=== PATIENT | female | born 1940 | race Caucasian/White ===

== ENCOUNTER 2021-08-13 16:48 | Emergency (ER) | payer MEDICARE, SELFPAY ==
--- NOTE | ~2021-08-13 | XR_ITS ---
EXAMINATION: XR tibia fibula LT 2V INDICATION: Left leg pain TECHNIQUE: Two views of the left tibia and fibula are obtained. COMPARISON: None available FINDINGS: Bone alignment is normal. There is no fracture. There is mild osteoarthritis at the knee. S oft tissue calcifications are noted in the leg. There is mild anterior soft tissue swelling overlying the distal tibia. IMPRESSION: 1. Soft tissue swelling without acute osseous abnormality. Reviewed, dictated and finalized at location F.
[2021-08-13 17:08] VITALS: BP 154/85; PULSE 86; RESP 16; TEMP 36.5; O2SAT 97
[2021-08-13 17:50] LABS: Basophils Absolute Auto 0.1 K/mm3 (0.0-0.1); Basophils Percent Auto 0.7 % (0.2-1.2); Eosinophils Absolute Auto 0.1 K/mm3 (0-0.3); Eosinophils Percent Auto 1.4 % (0-4.4); Hematocrit 42.2 % (37.0-47.0); Hemoglobin 13.7 g/dL (12.0-15.0); Immature Granulocyte Absolute 0.04 K/mm3 (0.00-0.031); Immature Granulocyte Percent A 0.4 % (0-0.5); Lymphocytes Absolute Auto 3.64 K/mm3 (0.9-3.2); Lymphocytes Percent Auto 40.4 % (18.3-44.2); Mean Corpuscular HGB Conc 32.5 g/dl (32-36); Mean Corpuscular Hemoglobin 27.3 pg (26-34); Mean Corpuscular Volume 84.2 fl (80-100); Mean Platelet Volume 11.7 fl (7.4-10.4); Monocytes Absolute Auto 0.8 K/mm3 (0.1-0.6); Monocytes Percent Auto 9.2 % (2.6-8.5); Neutrophils Absolute Auto 4.3 K/mm3 (1.3-6.7); Neutrophils Percent Auto 47.9 % (45.5-73.1); Platelet Count Result 171 k/mm3 (150-375); Red Blood Count 5.01 M/mm3 (4.2-5.4); Red Cell Distribution Width 13.7 % (11.5-14.5)
[2021-08-13 18:03] LABS: Alanine Aminotransferase 20 U/L (6-35); Albumin Level 4.6 g/dL (3.5-5.1); Alkaline Phosphatase 79 U/L (38-126); Anion Gap 8 mmol/L (8-16); Aspartate Amino Transferase 29 U/L (14-36); Bilirubin,Total 0.8 mg/dL (0.2-1.3); Blood Urea Nitrogen 23 mg/dL (7-17); Calcium 9.4 mg/dL (8.4-10.2); Carbon Dioxide 27 mmol/L (22-30); Chloride 103 mmol/L (98-107); Estimated CRCL calculation 47 ml/min; Estimated Glomerular Filt Rate 53; Glucose 89 mg/dL (65-110); Potassium 4.1 mmol/L (3.4-5.0); Sodium 138 mmol/L (137-145)
--- NOTE | 2021-08-13 18:05 | ED.WOUNDLAC ---
HPI - Wound/Laceration General Chief Complaint: Wound/Laceration Stated Complaint: leg infection Time Seen by Provider: 08/13/21 17:19 Source: patient History of Present Illness HPI narrative: Patient presents with swelling and pain to the left lower leg. Patient where she had a fall in March and recovered well from a few days ago she was cutting a friend's hair when she tripped and injured her leg again she noted increasing pain swelling and warmth to the left leg was seen in urgent care started on 300 of clindamycin. She has been taking the medicine for approximately 48 hours and her symptoms have persisted so she came to the ER for further evaluation. Pain is achy, constant, worse with walking around, no radiation. She denies any fevers chills nausea vomiting or diarrhea. She denies any urinary symptoms Related Data Allergies Allergy/AdvReac Type Severity Reaction Status Date / Time Penicillins AdvReac Rash Verified 08/13/21 17:51 tetracycline AdvReac Nausea and Verified 08/13/21 17:51 Vomiting Review of Systems Review of Systems: CONSTITUTIONAL: Denies fever, chills, or sweats. EYES: Denies visual changes, redness, or discharge. ENT: Denies rhinorrhea, congestion, sore throat, or otalgia. CARDIOVASCULAR: Denies chest pain, palpitations, or edema. RESPIRATORY: Denies cough or dyspnea. GASTROINTESTINAL: Denies abdominal pain, nausea, vomiting, or diarrhea. GENITOURINARY: Denies dysuria or hematuria. SKIN: Denies rash or itching. MUSCULOSKELETAL: Denies back pain, or myalgia. NEUROLOGIC: Denies headache, numbness, dizziness, or weakness. PSYCHIATRIC: Denies anxiety or depression. All systems reviewed & are unremarkable except as noted in HPI and below Exam Narrative: GENERAL: Well-appearing, well-nourished, and in no acute distress. HEAD: Normocephalic, atraumatic. EYES: PERRLA and EOMI. ENT: Nares clear, no rhinorrhea or epistaxis. Mucous membranes moist. NECK: Supple. No masses. No JVD EXTREMITIES: Normal range of motion. Diffuse distal left lower leg erythema and warmth with diffuse tenderness there is no focal fluctuance there is no open or draining purulent wounds SKIN: Warm, dry, no rash. NEURO: No focal deficits. Alert and oriented x3. PSYCH: Normal mood and affect. Course Reevaluation(s) Reevaluation #1: Results and plan reviewed with patient. Patient comfortable outpatient plan. Date: 08/13/21 Time: 18:41 Vital Signs Vital signs: Vital Signs Temperature 36.5 C 08/13/21 17:08 Pulse Rate 86 08/13/21 17:08 Respiratory Rate 16 08/13/21 17:08 Blood Pressure 154/85 H 08/13/21 17:08 Pulse Oximetry 97 08/13/21 17:08 Oxygen Delivery Room Air 08/13/21 17:08 Temperature 36.5 C 08/13/21 17:08 Pulse Rate 86 08/13/21 17:08 Respiratory Rate 16 08/13/21 17:08 Blood Pressure 154/85 H 08/13/21 17:08 Pulse Oximetry 97 08/13/21 17:08 Oxygen Delivery Room Air 08/13/21 17:08 MDM - Wound/Laceration MDM Narrative Medical decision making narrative: H&P as above, vss, pt looks clinically well, exam with warmth edema and tenderness in the left lower leg, labs clinically unremarkable, img without bony process or free air, additional labs/img considered, symptomatic relief available as needed, on reevaluation pt continues to looks clinically well. Suspect cellulitis, dns abscess, severe sepsis consider dehydration, fracture, septic arthritis plan to tx/monitor as op w/ pcm f/u findings/plan discussed with pt, pt agree/comfortable with plan, return precautions given Lab Data Result diagrams: 08/13/21 17:42 08/13/21 17:42 Labs: Lab Results 08/13/21 08/13/21 08/13/21 Range/Units 17:42 17:42 17:42 WBC 9.0 (4.5-10.0) K/mm3 RBC 5.01 (4.2-5.4) M/mm3 Hgb 13.7 (12.0-15.0) g/dL Hct 42.2 (37.0-47.0) % MCV 84.2 (80-100) fl MCH 27.3 (26-34) pg MCHC 32.5 (32-36) g/dl RDW 13.7 (11.5-14.5) % Plt Count 171 (
[2021-08-13 18:07] LABS: CRP < 0.5 mg/dL (<1.0)
[2021-08-13 18:28] LABS: Erythrocyte Sedimentation Rate 12 mm/hr (0-20)
== END 2021-08-13 19:17 | disposition home or self-care (01) ==
PROVIDERS: Emergency Provider Emergency Medicine; PCP Internal Medicine Geriatric Medicine
DX: L03.116 Cellulitis of left lower limb (principal)
CPT/HCPCS: 36415; 73590; 80053; 85025; 85652; 86140; 99283

== ENCOUNTER 2022-11-06 13:57 | Observation (INO) | payer MEDICARE, SELFPAY ==
[2022-11-06] VITALS (10 sets, daily range): BP systolic 141–159; BP diastolic 57–80; PULSE 75–99; RESP 16–24; TEMP 36.5–37.1; O2SAT 95–100; BMI 32.9; BMI 32.6
--- NOTE | ~2022-11-06 | NM_ITS ---
EXAMINATION: NM anna stress w perfusion DATE: 11/08/2022 09:52 INDICATION: Nonsustained ventricular tachycardia TECHNIQUE: Rest images were obtained following intravenous administration of 12.6 mCi Tc99m tetrofosm in (Myoview). The patient was infused intravenously with Lexiscan (Regadenoson). Then, 33 mCi Tc99m t etrofosmin (Myoview) was administered intravenously, and stress images were obtained. Data was recons tructed into short axis and horizontal and vertical long axis SPECT images. Gated SPECT images were a lso obtained. COMPARISON: None. FINDINGS: There is no definite reversible or fixed perfusion abnormality to suggest ischemia or infar ction. There is normal left ventricular chamber size, wall motion and ejection fraction. Left ventr icular ejection fraction measures >70%. IMPRESSION: 1. Normal myocardial perfusion at rest and during stress. 2. Left ventricular ejection fraction measuring >70%. Reviewed, dictated and finalized at location A.
--- NOTE | ~2022-11-06 | XR_ITS ---
XR chest 2V DATE: 11/06/2022 17:22 INDICATION: Shortness of breath. Dizziness. TECHNIQUE: AP and lateral views COMPARISON: None FINDINGS: The cardiac and mediastinal sweats are unremarkable. No hilar or mediastinal enlargement. T here is evidence of old pulmonary granulomatous disease. Mild elevation right diaphragm. No pulmonary infiltrate or consolidation, pleural effusion or pulmona ry vascular congestion or pneumothorax. Included skeletal structures are unremarkable other than mild degenerative spurring of the thoracic s pine and glenohumeral joints. IMPRESSION: No active cardiopulmonary disease Reviewed, dictated and finalized at location A.
--- NOTE | ~2022-11-06 | CT_ITS ---
EXAMINATION: CT brain wo con DATE: 11/06/2022 15:46 INDICATION: Dizziness, confusion, hypertension TECHNIQUE: Computed tomography (CT) of the head was performed without intravenous contrast. The mA wa s adjusted according to patient size. Iterative reconstruction technique was employed. Exam dose: 60 5.33 mGy-cm total exam DLP. COMPARISON: None FINDINGS: Prominent cystic area at the floor of the left middle cranial fossa, likely a large benign arachnoid cyst. Basilar artery and bilateral carotid siphon internal carotid artery calcifications. There is nonspeci fic diminished attenuation of the cerebral white matter, likely due to chronic small vessel ischemic changes. No intracranial mass lesion or hemorrhage or cerebrovascular accident is evident on this limited stud y with extensive streak artifact from cochlear implant. Moderate central and cortical cerebral and cerebellar atrophy. No midline shift or mass effect. No trejo bdural or epidural hematoma is detected. 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 Reviewed, dictated and finalized at location A. 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
--- NOTE | ~2022-11-06 | US_ITS ---
US venous doppler [facility] DATE: 11/07/2022 11:15 INDICATION: Lower extremity swelling TECHNIQUE: Real-time and color flow imaging and Doppler analysis of the veins of the lower extremitie s COMPARISON: None FINDINGS: The greater saphenous veins are patent. There is spontaneous and phasic flow and normal aug mentation and color flow signal and normal compression of the deep veins of both lower extremities. IMPRESSION: No evidence of deep venous thrombosis of the lower extremities Reviewed, dictated and finalized at Location A. Reviewed, dictated and finalized at location A.
--- NOTE | 2022-11-06 14:28 | ED.DIZZY ---
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 Patient states that over the last 3 weeks she has had some increased stressors at home with family members passing away. She states that she has had episodes of brain fog where she feels like she cannot get any thoughts out in these occur for just several seconds and quickly resolve after she applies pressure to her head. She notes that it is occurred about every other day and seems to been increasing in frequency over the last 3 weeks. Today she is experiencing some associated dizziness and lightheadedness, no chest pain or shortness of breath. No numbness or weakness in her arms or legs, no difficulty talking, no vision changes. She checked her blood pressure earlier today and was in the 150s which made her concerned. She notes that she typically takes 50 mg of losartan, she was previously on 100 mg of losartan but discontinued this dose with her primary care doctor due to feeling quite drowsy with the higher dose of medication. This morning after taking her blood pressure she did I did take a 2nd dose of 50 mg, totaling 100 mg of losartan. Related Data Home Medications Medication Instructions Recorded Confirmed losartan 100 mg tablet 100 mg PO DAILY 11/06/22 11/06/22 vibegron 75 mg tablet (Gemtesa) 75 mg PO HS 11/06/22 11/06/22 Allergies Allergy/AdvReac Type Severity Reaction Status Date / Time iodine AdvReac Rash Verified 11/06/22 14:05 Penicillins AdvReac Rash Verified 11/06/22 14:05 tetracycline AdvReac Nausea and Verified 11/06/22 14:05 Vomiting Review of Systems Review of Systems: CONSTITUTIONAL: Denies fever, chills, or sweats. EYES: Denies visual changes, redness, or discharge. ENT: Denies rhinorrhea, congestion, sore throat, or otalgia. CARDIOVASCULAR: Denies chest pain, palpitations, or edema. Light headedness RESPIRATORY: Denies cough or dyspnea. GASTROINTESTINAL: Denies abdominal pain, nausea, vomiting, or diarrhea. GENITOURINARY: Denies dysuria or hematuria. SKIN: Denies rash or itching. MUSCULOSKELETAL: Denies back pain, joint pain, or myalgia. NEUROLOGIC: Denies headache, numbness, or weakness. Episodes of brain fog. Dizziness. PSYCHIATRIC: Denies anxiety or depression. Exam Narrative: GENERAL: Well-appearing, well-nourished, and in no acute distress. HEAD: Normocephalic, atraumatic. EYES: PERRLA and EOMI. ENT: Nares clear. Mucous membranes moist. NECK: Supple. CHEST: Clear to auscultation. No respiratory distress. HEART: Regular rate and rhythm. Normal peripheral pulses. ABDOMEN: Soft, nontender, nondistended. EXTREMITIES: Normal range of motion. No edema. SKIN: Warm, dry, no rash. NEURO: No focal deficits. Normal ejmwyn-kg-scdl, [id number]-rb-[id number]. No facial droop, no upper or lower extremity drift. Alert and oriented x3. PSYCH: Normal mood and affect. Course Course Emergency Course: Chart review performed. Patient here with high blood pressure, had BP in the 150s at home. Reportedly on 100 mg losartan. ED visit for cellulitis on 08/13/21, blood pressure during that ED visit was 154/85. Triage vitals today are 153/57 and 159/80. Patient seen evaluated. Systolic blood pressure in the 130s on my initial evaluation. Neuro exam unremarkable. Currently she feels asymptomatic. Given risk factors we will do CT head, cardiac workup. Unsure of the origin of these episodes of brain fog. No concern for infectious process. No acute intervention required for her hypertension. Patient and son at bedside agreeable to plan. Lab work and imaging reviewed. CBC within normal limits, electrolytes grossly within normal limit
--- NOTE | 2022-11-06 15:07 | ECG_ITS ---
Measurements Intervals Waldo Rate: 89 P: 4 CT: 224 QRS: -17 QRSD: 97 T: -10 QT: 346 QTc: 423 Interpretive Statements SINUS RHYTHM WITH FIRST DEGREE AV BLOCK VOLTAGE CRITERIA FOR LVH [MEETS CRITERIA IN ONE OF: R(aVL), S(V1), R(V5), R(V5/V6)+S(V1)] POSSIBLE ANTERIOR MYOCARDIAL INFARCTION , OF INDETERMINATE AGE [30 ms Q WAVE IN V3/V4, OR R < 0.2 mV IN V4] NO PREVIOUS ECG AVAILABLE FOR COMPARISON Electronically Signed On 11-07-2022 11:12:00 CDT by Ibeth Ozuna MD
[2022-11-06 15:19] LABS: Basophils Absolute Auto 0.1 K/mm3 (0.0-0.1); Basophils Percent Auto 0.8 % (0.2-1.2); Eosinophils Absolute Auto 0.1 K/mm3 (0-0.3); Eosinophils Percent Auto 1.3 % (0-4.4); Hematocrit 47.7 % (37.0-47.0); Immature Granulocyte Absolute 0.06 K/mm3 (0.00-0.031); Immature Granulocyte Percent A 0.7 % (0-0.5); Lymphocytes Absolute Auto 3.02 K/mm3 (0.9-3.2); Lymphocytes Percent Auto 33.5 % (18.3-44.2); Mean Corpuscular HGB Conc 31.4 g/dl (32-36); Mean Platelet Volume 12.6 fl (7.4-10.4); Monocytes Absolute Auto 0.7 K/mm3 (0.1-0.6); Monocytes Percent Auto 7.8 % (2.6-8.5); Neutrophils Absolute Auto 5.1 K/mm3 (1.3-6.7); Neutrophils Percent Auto 55.9 % (45.5-73.1); Platelet Count Result 181 k/mm3 (150-375); Red Blood Count 5.36 M/mm3 (4.2-5.4); Red Cell Distribution Width 13.8 % (11.5-14.5)
[2022-11-06 15:20] LABS: Appearance Urine Clear (Clear); Bilirubin Urine Negative (Negative); Blood Urine Negative (Negative); Color Urine Yellow (Yellow); Glucose Urine UA Negative (Negative); Ketones Urine Negative (Negative); Leukocyte Esterase Ur Negative LEU/UL (Negative); Nitrate Urine Negative (Negative); Protein Urine Negative (Negative); Specific Grav Ur 1.016 (1.001-1.035); Urobilinogen Urine 0.2 mg/dL (<2.0); pH Urine 5.5 (5.0-9.0)
[2022-11-06 15:22] LABS: Add Urine Microscopic? NO
[2022-11-06 15:44] LABS: Alanine Aminotransferase 31 U/L (6-35); Albumin Level 4.7 g/dL (3.5-5.1); Alkaline Phosphatase 77 U/L (38-126); Anion Gap 6 mmol/L (8-16); Aspartate Amino Transferase 32 U/L (14-36); Bilirubin,Total 1.3 mg/dL (0.2-1.3); Blood Urea Nitrogen 29 mg/dL (7-17); Calcium 9.4 mg/dL (8.4-10.2); Carbon Dioxide 32 mmol/L (22-30); Chloride 100 mmol/L (98-107); Estimated CRCL calculation 45 ml/min; Estimated Glomerular Filt Rate 53; Glucose 96 mg/dL (65-110); Magnesium 2.3 mg/dL (1.6-2.3); Potassium 3.7 mmol/L (3.4-5.0); Sodium 138 mmol/L (137-145)
[2022-11-06 15:55] LABS: Troponin I < 0.012 ng/mL (0.000-0.034)
[2022-11-06] MEDS: POTASSIUM BICARBONATE 25 MEQ TABEF 50 MEQ PO (19:01)
--- NOTE | 2022-11-06 19:21 | PC.NURSE ---
Attempted to call report x2. Receiving nurse unable to take report. Report given to ELZBIETA Krueger. Pati RN to give report on patient when receiving nurse calls back.
--- NOTE | 2022-11-06 20:22 | PC.NURSE ---
This patient, Yanna Cervantes, was admitted to IMU Room 205-02. Patient/family oriented to hospital policies and general routines including ID bracelet, bed and alarms, visiting hours, pain management, procedures, bathroom and other care routines, personal items, smoking policy, room service/diet, and visiting hours. Information on how to activate the Rapid Response Team has been discussed. Patient/Family are encouraged to report perceived risks to care and to ask questions if they do not understand what they are told or what they should do.
[2022-11-07] VITALS (16 sets, daily range): BP systolic 123–151; BP diastolic 51–81; PULSE 71–87; RESP 12–20; TEMP 36.6–37.1; O2SAT 91–99
--- NOTE | 2022-11-07 01:09 | PM.IMHP ---
H&P: HPI History of Present Illness Date/Time: 11/06/22 22:00 Chief Complaint: Dizziness and elevated blood pressure. Narrative: This is a very pleasant 82-year-old female with hypertension and overactive bladder presented to the emergency department via private vehicle for evaluation of dizziness and elevated blood pressure. The patient provides the following history. She is extremely active and she has been busy this past 6 weeks. There have been several deaths in the family and she has driven herself to [place], [place], and [place] in the same timeframe. The last 3 weeks she reports intermittent episodes of ?brain fog? where she suddenly feels mild dizziness and lightheadedness. The symptoms last for several seconds before resolving. They are becoming more frequent. She sees no pattern as to when they occur; it has happened with rest, activity, and even while driving. When the symptoms occurred again this morning she took her blood pressure and notes that it was in the high 150 systolic which is unusual for her and she decided to come in for evaluation. CMP, CBC, and troponin in the ED did not show any significant abnormalities. BUN and serum carbon dioxide were mildly elevated. EKG did not show any acute ST segment elevations or depressions. Brain CT did not show any acute findings and chest x-ray was negative. While in the emergency department she had 2 episodes of nonsustained ventricular tachycardia and she is being admitted in this setting for close monitoring and Cardiology consultation. She sees Dr. Chávez, cinnamon grinder at [facility], and she has for many years. Apparently in the 1970s she was hospitalized at [facility] for palpitations and at that time ?my heart was out of rhythm? but she cannot recall the specifics. She was given a medication which restored her to a normal rhythm and she has not had any long-standing issues since that time. However she does mention that on rare occasions she will feel a fluttering discomfort in her upper chest and throat but that is rare and fleeting. She occasionally has mild lower extremity edema but nothing significant. She denies syncope, vision changes, focal weakness, paresthesias, exertional chest pain, pleuritic pain, shortness a breath, nausea, vomiting, sweats, orthopnea, and paroxysmal nocturnal dyspnea. Review of Systems Review of Systems: Twelve systems were reviewed and are negative except for as per HPI. [facility] Past Medical History Medical History (Updated 11/07/22 @ 01:19 by Ann Marie Odonnell PA-C) Hypertension Osteoarthritis Overactive bladder Surgical History Surgical History (Updated 11/07/22 @ 01:19 by Ann Marie Odonnell PA-C) History of cochlear implant History of colonoscopy with polypectomy History of hysterectomy History of tonsillectomy Family History Family History (Updated 11/07/22 @ 01:19 by Ann Marie Odonnell PA-C) Other Hypertension Social History Social History (Updated 11/07/22 @ 01:19 by Ann Marie Odonnell PA-C) Social History: Surrogate medical decision maker: Sherlyn Cervantes, son. Code status: Full code. Smoking status: Never smoker Second hand tobacco smoke exposure: No Alcohol intake: never Substance use: never Lack of Transportation: No Lack of Food: Never True Current Housing: I Have Housing Concerned About Future Housing: No Difficulty Paying Gas/Electric Bills: No Difficulty Paying for Meds: No Currently Unemployed: No Education: Master's Degree or Higher Difficulty w/ Childcare or Family Care: No Additional living arrangements comments: . She has 2 sons, 1 is local in the other lives in [place]. 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 Spiritual care concerns: No Meds Home Medications and Allergies Home Medications Medication Instructions Recorded Confirmed Type losartan 100 mg tablet 100 mg PO DAILY 11/06/22 11/06/22 History vibegron 75 mg tabl
[2022-11-07 04:13] LABS: Anion Gap 0 mmol/L (8-16); Blood Urea Nitrogen 25 mg/dL (7-17); Calcium 8.8 mg/dL (8.4-10.2); Carbon Dioxide 29 mmol/L (22-30); Chloride 105 mmol/L (98-107); Estimated CRCL calculation 44 ml/min; Estimated Glomerular Filt Rate 53; Glucose 98 mg/dL (65-110); Magnesium 2.4 mg/dL (1.6-2.3); Potassium 4.4 mmol/L (3.4-5.0); Sodium 134 mmol/L (137-145)
--- NOTE | 2022-11-07 07:20 | PM.IMPN ---
Progress Note: A&P Assessment and Plan (1) Non-sustained ventricular tachycardia: Code(s): I47.29 - Other ventricular tachycardia Status: Acute Assessment and Plan: Resolved, monitor telemetry Appreciate cardiology consultation, pending Check echo, consider stress test (2) Dizziness: Code(s): R42 - Dizziness and giddiness Status: Acute (3) Hypertension: Code(s): I10 - Essential (primary) hypertension Status: Acute Assessment and Plan: Blood pressures reviewed 11/07 (4) Overactive bladder: Code(s): N32.81 - Overactive bladder Status: Acute Plan DVT prophylaxis with SCDs GI prophylaxis not indicated Code status full code Subjective Date/time seen: 11/07/22 07:20 Interval history: 82-year-old female with history of hypertension and overactive bladder is presenting with presyncopal symptoms and elevated blood pressure. No overnight events noted. No chest pain or shortness of breath. No nausea, vomiting or diarrhea. No fevers or chills. Review of Systems Review of Systems: 12 point review of systems was assessed and was negative except as noted in the HPI Exam Narrative: General: No acute distress, alert and oriented per baseline HEENT: Atraumatic, normocephalic, mucous membranes moist CV: Regular rate and rhythm, S1, S2 Lungs: Clear to auscultation bilaterally, no rales or crackles noted, no wheezes, good air entry Abdomen: Soft, nontender, nondistended Extremities: Normal to inspection Skin: No rashes noted, no lesions or wounds seen Psych: Euthymic, normal affect Objective Data Vital Signs Vital Signs: Vital Signs - 24 hr 11/06/22 14:00 11/06/22 14:23 11/06/22 14:29 Temperature 98.7 F Pulse Rate 99 95 93 Respiratory Rate 18 16 Blood Pressure 153/57 H 159/80 H Pulse Oximetry 100 97 Oxygen Delivery Room Air 11/06/22 16:59 11/06/22 17:05 11/06/22 17:49 Temperature Pulse Rate 92 80 80 Respiratory Rate 17 24 H 16 Blood Pressure 141/73 H Pulse Oximetry 97 99 95 Oxygen Delivery 11/06/22 18:00 11/06/22 20:25 11/06/22 20:25 Temperature 97.7 F Pulse Rate 81 78 80 Respiratory Rate 20 18 Blood Pressure 150/59 H Pulse Oximetry 98 97 Oxygen Delivery 11/06/22 20:52 11/06/22 22:00 11/07/22 00:00 Temperature 98.5 F Pulse Rate 75 87 Respiratory Rate 16 Blood Pressure 133/66 Pulse Oximetry 97 99 Oxygen Delivery Room Air 11/07/22 00:00 11/07/22 00:00 11/07/22 02:00 Temperature Pulse Rate 75 72 Respiratory Rate Blood Pressure Pulse Oximetry 99 Oxygen Delivery Room Air 11/07/22 04:00 11/07/22 04:00 11/07/22 04:00 Temperature 98.8 F Pulse Rate 77 71 Respiratory Rate 16 Blood Pressure 148/68 H Pulse Oximetry 98 98 Oxygen Delivery Room Air 11/07/22 06:00 Temperature Pulse Rate 73 Respiratory Rate Blood Pressure Pulse Oximetry Oxygen Delivery Intake/Output Intake/Output: Intake & Output 11/04/22 11/05/22 11/06/22 11/07/22 23:59 23:59 23:59 23:59 Intake Total 700 Balance 700 Meds/Results Medications: Active Medications Generic Name Dose Route Start Last Admin Trade Name Freq PRN Reason Stop Dose Admin Acetaminophen 650 mg 11/07/22 01:24 Acetaminophen 325 Mg Tablet PO Q6H PRN Mild Pain (1-3) or Fever Losartan Potassium 100 mg 11/07/22 09:00 Losartan Potassium 100 Mg Tablet PO DAILY ALIRIO Miscellaneous Information 0 each 11/07/22 01:55 Vibegron [Gemtesa] 75 Mg Tablet- Nonformulary. Please Obtain A Home Supply If Possible. XX 12/07/22 01:54 CLARIFY ALIRIO Non-Formulary Medication 75 mg 11/07/22 21:00 Vibegron [Gemtesa] PO 12/07/22 20:59 HS ALIRIO Perflutren Lipid Microsphere 0 ml 11/07/22 01:24 Perflutren Lipid Microspheres 1.5 Ml Vial Diluted To 10 Ml Total Volume IV PUSH 11/10/22 01:24 ONCE PRN adequate visualization Pro
[2022-11-07 08:07] LABS: Hemoglobin 13.8 g/dL (12.0-15.0); Mean Corpuscular HGB Conc 31.4 g/dl (32-36); Mean Corpuscular Hemoglobin 28.1 pg (26-34); Mean Corpuscular Volume 89.6 fl (80-100); Mean Platelet Volume 12.9 fl (7.4-10.4); Platelet Count Result 154 k/mm3 (150-375); Red Blood Count 4.91 M/mm3 (4.2-5.4); Red Cell Distribution Width 13.6 % (11.5-14.5); White Blood Count 8.5 K/mm3 (4.5-10.0)
--- NOTE | 2022-11-07 10:01 | PM.CNCAR ---
Assessment and Plan Assessment and plan (1) Non-sustained ventricular tachycardia: Code(s): I47.29 - Other ventricular tachycardia Status: Acute Assessment and Plan: In regards to nonsustained ventricular tachycardia, patient endorses being stressed for the last 3 weeks. Obtain echocardiogram to assess cardiac structure and function. Obtain also a Lexiscan stress test to assess for ischemia. Agree with ruling out DVT and pulmonary embolism given frequent trips to outside the state. (2) Hypertension: Code(s): I10 - Essential (primary) hypertension Status: Acute Assessment and Plan: Blood pressure mildly elevated currently on losartan 100 mg b.i.d.. Monitor blood pressure. Await echo before medication adjustment. History of Present Illness History of Present Illness Consult date/time: Date of service 11/07/22 10:01 Requesting physician: Susi Laguerre MD Consult reason: Other (Nonsustained VT) Reason For Visit: Dizziness, episodes of Non sustained Ventricular T Narrative: This is a 82-year-old female with history of hypertension, cochlear implant who stated that for the last 3 weeks has been feeling brain freeze . Noticed that heart is irregular when checking blood pressure and elevated blood pressure. No recent changes in medications. No extra caffeine. No alcohol. She has stress for the last 3 weeks due to deaths. She traveled several times in the last 3 weeks [address] driving. Denies chest pain, shortness of breath, lower extremity edema, syncope. She had frequent PVCs overnight and 1 episode of nonsustained ventricular tachycardia EKG reviewed and asthma social sinus rhythm, first-degree heart block, LVH, poor R-wave progression. Chest x-ray reviewed and was massive shows old granulomatous disease. Electrolytes normal Review of Systems Constitutional: Constitutional: Denies chills, Denies fever(s) and Denies poor appetite Eyes: Eyes: Denies eye discharge, Denies loss of vision and Denies eye pain ENT: Denies dizziness, Denies epistaxis, Denies nasal congestion and Denies sore throat Cardiovascular: Cardiovascular: Denies chest pain, Denies syncope, Denies pedal edema, Denies leg edema, Denies palpitations, Denies dyspnea, Denies dyspnea on exertion and Denies orthopnea Comments: Irregular heartbeats Respiratory: Respiratory: Denies cough, Denies dyspnea, Denies dyspnea on exertion and Denies wheezing Gastrointestinal: Gastrointestinal: Denies abdominal pain, Denies diarrhea, Denies nausea and Denies vomiting Genitourinary: Genitourinary: Denies hematuria, Denies genital lesions and Denies dysuria Musculoskeletal: Musculoskeletal: Denies arthralgias, Denies joint swelling and Denies numbness Integumentary/Breasts: Skin/Breast: Denies pruritus and Denies rash Neurologic: Reports dizziness, Denies syncope, Denies loss of vision and Denies numbness Comments: Experiences what is described as brain freeze Psychiatric: Psychiatric: Denies anxiety and Denies depression Endocrine: Endocrine: Denies cold intolerance, Denies heat intolerance and Denies palpitations Hematologic/Lymphatic: Hematologic/Lymphatic: Denies easy bleeding and Denies easy bruising Allergic/Immunologic: Allergic/Immunologic: Denies urticaria and Denies wheezing PMFSH Past Medical History Medical History Hypertension Osteoarthritis Overactive bladder Surgical History Surgical History History of cochlear implant History of colonoscopy with polypectomy History of hysterectomy History of tonsillectomy Family History Family History Other Hypertension Social History Social History Social History: Surrogate medical decision maker: Sherlyn Cervantes, son. Code status: Full code. S
[2022-11-07] MEDS: LOSARTAN POTASSIUM 100 MG TABLET PO (10:04)
--- NOTE | 2022-11-07 14:52 | PC.NURSE ---
Frequent R-on-T PVC's present on tele, Dr Ozuna informed. Electrolytes reviewed with provider and the current plan remains lexiscan on Tuesday.
[2022-11-08] VITALS (14 sets, daily range): BP systolic 142–160; BP diastolic 59–74; PULSE 66–95; RESP 18–20; TEMP 36.5–37.1; O2SAT 96–100
--- NOTE | 2022-11-08 01:24 | ECHO_ITS ---
Patient Info Name: Yanna Cervantes Age: 82 years : 1940 Gender: Female Ht: 66 in Wt: 202 lbs BSA: 2.10 m2 HR: 71 bpm BP: 160 / 60 mmHg Heart Rhythm: Sinus Rhythm Technical Quality: Fair Exam Date: 11/08/2022 9:58 AM Exam Location: [facility] Pulmonary Exam Room: 205 Patient Status: Inpatient Admit Date: 11/06/2022 Staff Ordering Physician: Ann Marie Odonnell PA-C Pickup Driver: Mayra Reynolds RDCS Attending Provider: Parvez Arias MD Referring Physician: Blas GARCIA; Exam Type: CA echo doppler color flow Study Info Indications - nonsustained VT HTN Complete two-dimensional, color flow and Doppler transthoracic echocardiogram is performed. Summary 1. Complete two-dimensional, color flow and Doppler transthoracic echocardiogram is performed. 2. Left ventricular chamber dimension is normal. 3. Left ventricular systolic function is normal, estimated at 65-70%. 4. The left ventricular diastolic function is grade I diastolic dysfunction. 5. There is mildly increased left ventricular wall thickness. 6. There is mild mitral valve regurgitation. 7. The mitral valve has thickened leaflets. 8. The mitral valve annulus is mildly calcified. 9. There is mild tricuspid valve regurgitation. 10. There is mild pulmonic regurgitation. Left Ventricle Left ventricular chamber dimension is normal. Left ventricular systolic function is normal, estimated at 65-70%. There is mildly increased left ventricular wall thickness. The left ventricular diastolic function is grade I diastolic dysfunction. Right Ventricle Right ventricular chamber dimension is normal. Right ventricular systolic function is normal. Left Atria Left atrial chamber dimension is normal. Right Atria Right atrial chamber dimension is normal. Atrial Septum Intact interatrial septum visualized by color flow imaging. Aortic Valve The aortic valve is probable trileaflet. There is moderate aortic valve sclerosis. There is no aortic valve stenosis. There is trace aortic valve regurgitation. Pulmonic Valve The pulmonic valve is normal. There is no pulmonic valve stenosis. There is mild pulmonic regurgitation. Mitral Valve The mitral valve has thickened leaflets. There is no mitral valve stenosis. There is mild mitral valve regurgitation. The mitral valve annulus is mildly calcified. Tricuspid Valve The tricuspid valve leaflets are normal. There is no significant tricuspid valve stenosis. There is mild tricuspid valve regurgitation. No pulmonary hypertension, estimated pulmonary arterial systolic pressure is 31 mmHg. Pericardium/Pleural The pericardium appears normal. There is no pericardial effusion. Inferior Vena Cava Normal inferior vena cava with >50% collapse upon inspiration consistent with normal right atrial pressure, 10 mmHg. Aorta The aortic root size at the sinus of Valsalva is normal. Left Ventricular Outflow Tract Name Value Normal LVOT 2D LVOT Diameter 2.0 cm LVOT Doppler LVOT Peak Gradient 4 mmHg LVOT Mean Gradient 2 mmHg LVOT VTI 21 cm LVOT VTI/AV VTI Ratio 0.8
--- NOTE | 2022-11-08 08:10 | PM.IMPN ---
Progress Note: A&P Assessment and Plan (1) Non-sustained ventricular tachycardia: Code(s): I47.29 - Other ventricular tachycardia Status: Acute Assessment and Plan: Resolved, monitor telemetry Appreciate cardiology consultation, pending Check echo, stress test Dopplers negative for DVT, check d-dimer, consider CTA r/o PE (2) Dizziness: Code(s): R42 - Dizziness and giddiness Status: Acute (3) Hypertension: Code(s): I10 - Essential (primary) hypertension Status: Acute Assessment and Plan: Blood pressures reviewed 11/08 (4) Overactive bladder: Code(s): N32.81 - Overactive bladder Status: Acute Plan DVT prophylaxis with SCDs GI prophylaxis not indicated Code status full code Subjective Date/time seen: 11/08/22 08:10 Interval history: 82-year-old female with history of hypertension and overactive bladder is presenting with presyncopal symptoms and elevated blood pressure. In stress testing. Review of Systems Review of Systems: Unable to assess Exam Narrative: In stress testing Objective Data Vital Signs Vital Signs: Vital Signs - 24 hr 11/07/22 12:00 11/07/22 10:00 11/07/22 12:00 Temperature 98.4 F Pulse Rate 84 84 86 Respiratory Rate 16 Blood Pressure 150/51 H Pulse Oximetry 91 Oxygen Delivery 11/07/22 16:00 11/07/22 12:00 11/07/22 16:00 Temperature 97.8 F Pulse Rate 83 Respiratory Rate 20 Blood Pressure 148/54 H Pulse Oximetry 95 98 98 Oxygen Delivery Room Air Room Air 11/07/22 14:00 11/07/22 16:00 11/07/22 18:00 Temperature Pulse Rate 84 85 79 Respiratory Rate Blood Pressure Pulse Oximetry Oxygen Delivery 11/07/22 18:43 11/07/22 18:43 11/07/22 20:00 Temperature 97.8 F Pulse Rate 74 Respiratory Rate 20 Blood Pressure 142/58 H 146/63 H 123/81 Pulse Oximetry 99 Oxygen Delivery 11/07/22 20:00 11/07/22 20:42 11/07/22 20:43 Temperature Pulse Rate Respiratory Rate Blood Pressure 123/81 127/65 136/60 Pulse Oximetry Oxygen Delivery 11/07/22 20:00 11/07/22 20:00 11/07/22 22:00 Temperature Pulse Rate 76 80 Respiratory Rate Blood Pressure Pulse Oximetry 99 Oxygen Delivery Room Air 11/07/22 23:31 11/08/22 00:00 11/08/22 00:00 Temperature 98.6 F Pulse Rate 84 72 Respiratory Rate 18 Blood Pressure 151/70 H Pulse Oximetry 97 97 Oxygen Delivery Room Air 11/08/22 02:00 11/08/22 04:00 11/08/22 04:00 Temperature 97.8 F Pulse Rate 66 68 91 Respiratory Rate 20 Blood Pressure 160/60 H Pulse Oximetry 97 Oxygen Delivery 11/08/22 04:00 11/08/22 06:00 11/08/22 07:30 Temperature 98.4 F Pulse Rate 91 82 Respiratory Rate 19 Blood Pressure 156/68 H Pulse Oximetry 97 96 Oxygen Delivery Room Air Intake/Output Intake/Output: Intake & Output 11/05/22 11/06/22 11/07/22 11/08/22 23:59 23:59 23:59 23:59 Intake Total 2090 300 Output Total 750 Balance 2090 -450 Meds/Results Medications: Active Medications Generic Name Dose Route Start Last Admin Trade Name Freq PRN Reason Stop Dose Admin Acetaminophen 650 mg 11/07/22 01:24 Acetaminophen 325 Mg Tablet PO Q6H PRN Mild Pain (1-3) or Fever Losartan Potassium 100 mg 11/07/22 09:00 11/07/22 10:04 Losartan Potassium 100 Mg Tablet PO 100 mg DAILY ALIRIO Administration Miscellaneous Information 0 each 11/07/22 01:55 Vibegron [Gemtesa] 75 Mg Tablet- Nonformulary. Please Obtain A Home Supply If Possible. XX 12/07/22 01:54 CLARIFY ALIRIO Non-Formulary Medication 75 mg 11/07/22 21:00 Vibegron [Gemtesa] PO 12/07/22 20:59 HS ALIRIO Perflutren Lipid Microsphere 0 ml 11/07/22 01:24 Perflutren Lipid Microspheres 1.5 Ml Vial Diluted To 10 Ml Total Volume IV PUSH 11/10/22 01:24 ONCE PRN adequate visualization Protocol Radiology Results: IT
--- NOTE | 2022-11-08 10:31 | PM.PNCARD ---
Progress Note: A&P Assessment and Plan (1) Non-sustained ventricular tachycardia: Code(s): I47.29 - Other ventricular tachycardia Status: Acute Assessment and Plan: In regards to nonsustained ventricular tachycardia, patient endorses being stressed for the last 3 weeks. She has frequent PVC's and several episodes of NSVT noted on telemetry Lexiscan performed this morning and did not show any infarct or ischemia, EF >70% 2D echo with Doppler is pending Can add low dose beta matthias (2) Hypertension: Code(s): I10 - Essential (primary) hypertension Status: Acute Assessment and Plan: Blood pressure mildly elevated currently on losartan 100 mg b.i.d.. Adding beta matthias as above for PVC's. Will await echo results before further adjustments are made Subjective Date/time seen: 11/08/22 10:31 Interval history: Cardiology follow up for NSVT Feels well this morning and has no complaints. Seeing her in the stress lab. Denies chest pain, palpitations, shortness of breath. Review of Systems Constitutional: Constitutional: Denies chills, Denies fever(s) and Denies poor appetite Eyes: Eyes: Denies eye discharge, Denies loss of vision, Denies eye pain and Denies photophobia ENT: Reports dizziness, Denies epistaxis, Denies nasal congestion and Denies sore throat Cardiovascular: Cardiovascular: Denies chest pain, Denies syncope, Denies pedal edema, Denies leg edema, Denies palpitations, Denies dyspnea, Denies dyspnea on exertion and Denies orthopnea Respiratory: Respiratory: Denies cough, Denies dyspnea, Denies dyspnea on exertion and Denies wheezing Gastrointestinal: Gastrointestinal: Denies abdominal pain, Denies diarrhea, Denies nausea and Denies vomiting Genitourinary: Genitourinary: Denies hematuria, Denies genital lesions and Denies dysuria Musculoskeletal: Musculoskeletal: Denies arthralgias, Denies joint swelling and Denies numbness Integumentary/Breasts: Skin/Breast: Denies pruritus and Denies rash Neurologic: Reports dizziness, Denies syncope, Denies loss of vision and Denies numbness Psychiatric: Psychiatric: Denies anxiety and Denies depression Endocrine: Endocrine: Denies cold intolerance, Denies heat intolerance and Denies palpitations Hematologic/Lymphatic: Hematologic/Lymphatic: Denies easy bleeding and Denies easy bruising Allergic/Immunologic: Allergic/Immunologic: Denies urticaria and Denies wheezing Exam Const: General: comfortable, no acute distress, alert and awake Orientation/consciousness: patient oriented x3 HENMT: Head: normal to inspection Eyes: General: appearance normal, both eyes and all related structures Pupils: Equal, round and reactive pupils present Neck: Neck: normal visual inspection, supple and no JVD Carotids: normal carotid upstroke Resp: Effort & Inspection: normal respiratory effort Auscultation: clear to auscultation bilaterally Cardio: Rate: regular rate Rhythm: regular rhythm Heart sounds: S1 normal heart sound present, S2 normal heart sound present and no murmurs GI: Auscultation: normal bowel sounds Skin: General skin exam: normal color Neuro: General: patient oriented x3 Cranial nerves: Yes Equal, round and reactive pupils present Extrem: General: normal to inspection Psych: Appearance: grossly normal Mental Status: mental status grossly normal Objective Data Vital Signs Vital Signs: Vital Signs - 24 hr 11/07/22 12:00 11/07/22 12:00 11/07/22 16:00 Temperature 36.9 C 36.6 C Pulse Rate 84 86 83 Respiratory Rate 16 20 Blood Pressure 150/51 H 148/54 H Pulse Oximetry 91 95 Oxygen Delivery 11/07/22 12:00 11/07/22 16:00 11/07/22 14:00 Temperature Pulse Rate 84 Respiratory Rate Blood Pressure Pulse Oximetry 98 98 Oxygen Delivery Room Air Room Air 11/07/22 16:00 11/07/22 18:00 11/07/22 18:43 Temperature Pulse Rate 85 79 Respiratory Rate Blood Pressure 142/58 H P
--- NOTE | 2022-11-08 10:34 | EST_ITS ---
Patient Info Name: Yanna Cervantes Age: 82 years : 1940 Gender: Female Ht: 66 in Wt: 202 lbs BSA: 2.10 m2 HR: 84 bpm BP: 161 / 83 mmHg Heart Rhythm: Sinus Rhythm Exam Date: 11/08/2022 8:40 AM Exam Location: [facility] Stress Patient Status: Inpatient Admit Date: 11/06/2022 Staff Ordering Physician: Ibeth Ozuna MD Attending Provider: Parvez Arias MD Exercise Technologist: Lexy Jon, CT Nurse: Swati Forman APN Exam Type: CA stress anna w NM Study Info Indications I47.2 - NONSUSTAINED VT A regadenoson stress test was performed. Summary 1. Sinus rhythm with first-degree AV block and 1 PVC with low QRS voltage. 2. Mild diffuse ST segment downsloping approximately 1 mm following Lexiscan injection. 3. None. 4. Myocardial perfusion imaging study to be dictated by Radiology. Protocol: Lexiscan Stress ECG Details Stage: REST Duration (min): 2 min : 7 sec HR (bpm): 80 SBP (mmHg): 161 DBP (mmHg): 83 Stage: REST Duration (min): 7 min : 56 sec HR (bpm): 82 SBP (mmHg): 161 DBP (mmHg): 83 Stage: STAGE 1 Duration (min): 0 min : 59 sec HR (bpm): 103 SBP (mmHg): 161 DBP (mmHg): 83 Stage: RECOVERY Duration (min): 1 min : 0 sec HR (bpm): 109 SBP (mmHg): 161 DBP (mmHg): 83 Stage: RECOVERY Duration (min): 2 min : 0 sec HR (bpm): 104 SBP (mmHg): 161 DBP (mmHg): 83 Stage: RECOVERY Duration (min): 3 min : 0 sec HR (bpm): 98 SBP (mmHg): 161 DBP (mmHg): 87 Stage: RECOVERY Duration (min): 4 min : 0 sec HR (bpm): 94 SBP (mmHg): 161 DBP (mmHg): 87 Stage: RECOVERY Duration (min): 4 min : 39 sec HR (bpm): 99 SBP (mmHg): 161 DBP (mmHg): 87 Rest HR: 82 bpm Peak HR: 110 bpm Rest Sys BP: 161 mmHg Peak Sys BP: 161 mmHg Max Pred HR: 139 bpm % Max Pred HR: 79 % Target HR: 118 bpm Max RPP: 17,710 bpm*mmHg Termination Reason: Completed protocol Total Time: 1 min : 0 sec Rest Deng BP: 83 mmHg Peak Deng BP: 87 mmHg Total Dose: 0.4 mg Resting ECG Sinus rhythm with first-degree AV block and 1 PVC with low QRS voltage. Stress ECG Mild diffuse ST segment downsloping approximately 1 mm following Lexiscan injection. Arrhythmias None. Report Signatures
[2022-11-08 10:47] LABS: D Dimer 0.46 ug/mL (<0.48)
[2022-11-08] MEDS: LOSARTAN POTASSIUM 100 MG TABLET PO (11:16)
[2022-11-08] MEDS: METOPROLOL SUCCINATE EXT REL 12.5 MG TABCR PO (11:16)
[2022-11-08 12:53] LABS: Basophils Absolute Auto 0.1 K/mm3 (0.0-0.1); Basophils Percent Auto 0.6 % (0.2-1.2); Eosinophils Absolute Auto 0.1 K/mm3 (0-0.3); Eosinophils Percent Auto 1.3 % (0-4.4); Hematocrit 45.9 % (37.0-47.0); Hemoglobin 14.5 g/dL (12.0-15.0); Immature Granulocyte Absolute 0.03 K/mm3 (0.00-0.031); Immature Granulocyte Percent A 0.4 % (0-0.5); Immature Platelet Fraction Pct 14.5 % (0.9-11.2); Lymphocytes Absolute Auto 2.49 K/mm3 (0.9-3.2); Lymphocytes Percent Auto 30.1 % (18.3-44.2); Mean Corpuscular HGB Conc 31.6 g/dl (32-36); Mean Corpuscular Hemoglobin 28.4 pg (26-34); Mean Corpuscular Volume 89.8 fl (80-100); Mean Platelet Volume 13.3 fl (7.4-10.4); Monocytes Absolute Auto 0.7 K/mm3 (0.1-0.6); Neutrophils Absolute Auto 4.9 K/mm3 (1.3-6.7); Neutrophils Percent Auto 59.6 % (45.5-73.1); Platelet Count Result 147 k/mm3 (150-375); Red Blood Count 5.11 M/mm3 (4.2-5.4); Red Cell Distribution Width 13.5 % (11.5-14.5); White Blood Count 8.3 K/mm3 (4.5-10.0)
[2022-11-08 13:07] LABS: Alanine Aminotransferase 24 U/L (6-35); Albumin Level 3.8 g/dL (3.5-5.1); Alkaline Phosphatase 56 U/L (38-126); Anion Gap 7 mmol/L (8-16); Aspartate Amino Transferase 32 U/L (14-36); Bilirubin,Total 1.1 mg/dL (0.2-1.3); Blood Urea Nitrogen 24 mg/dL (7-17); Carbon Dioxide 28 mmol/L (22-30); Chloride 102 mmol/L (98-107); Estimated CRCL calculation 49 ml/min; Estimated Glomerular Filt Rate 60; Glucose 93 mg/dL (65-110); Sodium 137 mmol/L (137-145)
[2022-11-09] VITALS (10 sets, daily range): BP systolic 147–170; BP diastolic 53–66; PULSE 61–80; RESP 14–20; TEMP 36.2–37.1; O2SAT 95–100
--- NOTE | 2022-11-09 08:17 | PM.IMPN ---
Progress Note: A&P Assessment and Plan (1) Non-sustained ventricular tachycardia: Code(s): I47.29 - Other ventricular tachycardia Status: Acute Assessment and Plan: Resolved, monitor telemetry Appreciate cardiology consultation, recommend low-dose beta-matthias Echo EF 65-70%, grade 1 diastolic dysfunction, stress test negative Dopplers negative for DVT, d-dimer negative (2) Dizziness: Code(s): R42 - Dizziness and giddiness Status: Acute (3) Hypertension: Code(s): I10 - Essential (primary) hypertension Status: Acute Assessment and Plan: Blood pressures reviewed 11/09 (4) Overactive bladder: Code(s): N32.81 - Overactive bladder Status: Acute Plan DVT prophylaxis with SCDs GI prophylaxis not indicated Code status full code Subjective Date/time seen: 11/09/22 08:17 Interval history: 82-year-old female with history of hypertension and overactive bladder is presenting with presyncopal symptoms and elevated blood pressure. No overnight events noted. No chest pain or shortness of breath. No nausea, vomiting or diarrhea. No fevers or chills. Review of Systems Review of Systems: 12 point review of systems was assessed and was negative except as noted in the HPI Exam Narrative: General: No acute distress, alert and oriented per baseline HEENT: Atraumatic, normocephalic, mucous membranes moist CV: Regular rate and rhythm, S1, S2 Lungs: Clear to auscultation bilaterally, no rales or crackles noted, no wheezes, good air entry Abdomen: Soft, nontender, nondistended Extremities: Normal to inspection Skin: No rashes noted, no lesions or wounds seen Psych: Euthymic, normal affect Objective Data Vital Signs Vital Signs: Vital Signs - 24 hr 11/08/22 10:00 11/08/22 12:00 11/08/22 12:00 Temperature 98.2 F Pulse Rate 95 69 Respiratory Rate 18 Blood Pressure 158/74 H Pulse Oximetry 100 96 Oxygen Delivery Room Air 11/08/22 12:00 11/08/22 14:00 11/08/22 16:00 Temperature Pulse Rate 80 76 Respiratory Rate Blood Pressure Pulse Oximetry 97 Oxygen Delivery Room Air 11/08/22 16:00 11/08/22 16:00 11/08/22 18:00 Temperature 98.7 F Pulse Rate 82 91 77 Respiratory Rate 18 Blood Pressure 145/59 H Pulse Oximetry 97 Oxygen Delivery 11/08/22 20:00 11/08/22 20:00 11/08/22 20:00 Temperature 97.9 F Pulse Rate 76 78 Respiratory Rate 18 Blood Pressure 145/60 H 145/60 H Pulse Oximetry 97 Oxygen Delivery 11/08/22 20:00 11/08/22 21:50 11/08/22 23:13 Temperature 97.7 F Pulse Rate 81 68 Respiratory Rate 18 Blood Pressure 142/62 H Pulse Oximetry 96 Oxygen Delivery Room Air 11/09/22 00:00 11/09/22 00:00 11/09/22 02:00 Temperature Pulse Rate 78 69 Respiratory Rate Blood Pressure Pulse Oximetry Oxygen Delivery Room Air 11/09/22 03:47 11/09/22 03:48 11/09/22 04:00 Temperature 97.9 F Pulse Rate 61 67 Respiratory Rate 20 Blood Pressure 169/64 H Pulse Oximetry 99 Oxygen Delivery Room Air 11/09/22 04:46 11/09/22 04:46 11/09/22 04:47 Temperature 97.9 F 97.1 F L 97.1 F L Pulse Rate 67 69 80 Respiratory Rate 20 18 20 Blood Pressure 169/64 H 163/66 H 170/65 H Pulse Oximetry 99 99 100 Oxygen Delivery 11/09/22 06:00 Temperature Pulse Rate 69 Respiratory Rate Blood Pressure Pulse Oximetry Oxygen Delivery Intake/Output Intake/Output: Intake & Output 11/06/22 11/07/22 11/08/22 11/09/22 23:59 23:59 23:59 23:59 Intake Total 2090 1230 150 Output Total 1000 Balance 0 230 150 Meds/Results Medications: Active Medications Generic Name Dose Route Start Last Admin Trade Name Freq PRN Reason Stop Dose Admin Acetaminophen 650 mg 11/07/22 01:24 Acetaminophen 325 Mg Tablet PO Q6H PRN Mild Pain (1-3) or Fever Amlodipine Besylate 2.5 mg 11/09/22 09:00 Amlodipine Be
--- NOTE | 2022-11-09 09:05 | PM.PNCARD ---
Progress Note: A&P Assessment and Plan (1) Non-sustained ventricular tachycardia: Code(s): I47.29 - Other ventricular tachycardia Status: Acute Assessment and Plan: In regards to nonsustained ventricular tachycardia, patient endorses being stressed for the last 3 weeks. She has frequent PVC's and several episodes of NSVT noted on telemetry Lexiscan performed this morning and did not show any infarct or ischemia, EF >70% 2D echo with Doppler showed normal LVSF, mild MR, mild TR Tolerating beta matthias (2) Hypertension: Code(s): I10 - Essential (primary) hypertension Status: Acute Assessment and Plan: Blood pressure mildly elevated currently on losartan 100 mg b.i.d.. Adding beta matthias as above for PVC's. Also added low dose amlodipine this morning. Further adjustments can be made as an outpatient. Subjective Date/time seen: 11/09/22 09:05 Interval history: Cardiology follow up for NSVT Date of service 11/08/2022: Feels well this morning and has no complaints. Seeing her in the stress lab. Denies chest pain, palpitations, shortness of breath. Date of service 11/09/2022: Continues to feel well. Being discharged today. No complaints of any kind. Review of Systems Constitutional: Constitutional: Denies chills, Denies fever(s) and Denies poor appetite Eyes: Eyes: Denies eye discharge, Denies loss of vision, Denies eye pain and Denies photophobia ENT: Reports dizziness, Denies epistaxis, Denies nasal congestion and Denies sore throat Cardiovascular: Cardiovascular: Denies chest pain, Denies syncope, Denies pedal edema, Denies leg edema, Denies palpitations, Denies dyspnea, Denies dyspnea on exertion and Denies orthopnea Respiratory: Respiratory: Denies cough, Denies dyspnea, Denies dyspnea on exertion and Denies wheezing Gastrointestinal: Gastrointestinal: Denies abdominal pain, Denies diarrhea, Denies nausea and Denies vomiting Genitourinary: Genitourinary: Denies hematuria, Denies genital lesions and Denies dysuria Musculoskeletal: Musculoskeletal: Denies arthralgias, Denies joint swelling and Denies numbness Integumentary/Breasts: Skin/Breast: Denies pruritus and Denies rash Neurologic: Reports dizziness, Denies syncope, Denies loss of vision and Denies numbness Psychiatric: Psychiatric: Denies anxiety and Denies depression Endocrine: Endocrine: Denies cold intolerance, Denies heat intolerance and Denies palpitations Hematologic/Lymphatic: Hematologic/Lymphatic: Denies easy bleeding and Denies easy bruising Allergic/Immunologic: Allergic/Immunologic: Denies urticaria and Denies wheezing Exam Const: General: cooperative, comfortable, no acute distress, alert, awake and well nourished Nutritional Appearance: well nourished Orientation/consciousness: patient oriented x3 HENMT: Head: normal to inspection, normocephalic and atraumatic Ears: hearing grossly normal bilaterally Face/Nose/Sinus: Normal external nose present, Normal nares present, no nasal discharge noted, normal facial exam and No erythema Face and sinus: normal facial exam and no erythema Mouth: No drooling and No restricted motion Throat: uvula midline Eyes: General: appearance normal, both eyes and all related structures Alignment and Position: position normal Conjunctivae: conjunctivae normal Sclera: sclerae normal Pupils: Equal, round and reactive pupils present Direct Ophthalmoscopy: No photophobia Neck: Neck: normal visual inspection, supple and no JVD Thyroid: thyroid normal Carotids: normal carotid upstroke and no bruits Lymphatic: lymphedema not noted Chest: Chest palpation & inspection: normal inspection of the chest and no tenderness Resp: Effort & Inspection: normal respiratory effort and no nasal flaring Auscultation: clear to auscultation bilaterally, no crackles, no rales and no wheezes Cardio: Jugular venous distension: no JVD Rate: regular rate Rhythm: regular rhythm Heart
[2022-11-09] MEDS: amLODIPine BESYLATE 2.5 MG TABLET PO (09:39)
[2022-11-09] MEDS: METOPROLOL SUCCINATE EXT REL 25 MG TABCR PO (09:39)
[2022-11-09] MEDS: LOSARTAN POTASSIUM 100 MG TABLET PO (09:39)
--- NOTE | 2022-11-09 13:06 | PM.DS ---
DS: Admitting Diagnosis Discharge Date 11/09/22 Admitting Diagnosis elevated blood pressure DS: Discharge Diagnosis Discharge Diagnosis (1) Non-sustained ventricular tachycardia: Code(s): I47.29 - Other ventricular tachycardia Status: Acute Assessment and Plan: Resolved, monitor telemetry Appreciate cardiology consultation, recommend low-dose beta-matthias Echo EF 65-70%, grade 1 diastolic dysfunction, stress test negative Dopplers negative for DVT, d-dimer negative (2) Dizziness: Code(s): R42 - Dizziness and giddiness Status: Acute (3) Hypertension: Code(s): I10 - Essential (primary) hypertension Status: Acute Assessment and Plan: Blood pressures reviewed 11/09 (4) Overactive bladder: Code(s): N32.81 - Overactive bladder Status: Acute Plan DVT prophylaxis with SCDs GI prophylaxis not indicated Code status full code DS: Summary Hospital Course Hospital Course: 82-year-old female with history of hypertension and overactive bladder is presenting with presyncopal symptoms and elevated blood pressure. Resolved, monitor telemetry Appreciate cardiology consultation, recommend low-dose beta-matthias Echo EF 65-70%, grade 1 diastolic dysfunction, stress test negative Dopplers negative for DVT, d-dimer negative? Blood pressure mildly elevated currently on losartan 100 mg b.i.d.. Adding beta matthias as above for PVC's.? Also added low dose amlodipine this morning.? Further adjustments can be made as an outpatient. Please see above and med rec for details. Time Spent with Patient Time attestation: Total time spent providing and/or coordinating discharge services: Exam Narrative: General: No acute distress, alert and oriented per baseline HEENT: Atraumatic, normocephalic, mucous membranes moist CV: Regular rate and rhythm, S1, S2 Lungs: Clear to auscultation bilaterally, no rales or crackles noted, no wheezes, good air entry Abdomen: Soft, nontender, nondistended Extremities: Normal to inspection Skin: No rashes noted, no lesions or wounds seen Psych: Euthymic, normal affect DS: Data Data Completed and Pending Labs on day of discharge: Labs from last 24 hours 11/08/22 10:22 Sodium 137 Potassium 5.0 Chloride 102 Carbon Dioxide 28 Anion Gap 7 L BUN 24 H Creatinine 0.90 Estim Creat Clear Calc 49 Estimated GFR 60 Glucose 93 Calcium 9.0 Total Bilirubin 1.1 AST 32 ALT 24 Alkaline Phosphatase 56 Total Protein 6.0 L Albumin 3.8 Discharge Plan Discharge Attending physician on discharge: Hilda Lorenzo Consulting providers: Sarah Grant Discharging Clinician: Hilda Lorenzo Patient Disposition: Home, Self-Care Activity: as tolerated Diet: as tolerated Patient Instructions: Antibiotic Form Stand Alone Forms: General Discharge Information Follow-up/Referrals: Sarah Grant DO [Physician] - Carley,MD Elena [Primary Care Provider] - Discharge Medications: New amlodipine 2.5 mg Tablet 2.5 mg PO QAM 30 Days Qty: 30 0RF metoprolol succinate [Toprol XL] 25 mg Tablet Extended Release 24 Hr 25 mg PO QAM 30 Days Qty: 30 0RF Continued losartan 100 mg tablet 100 mg PO DAILY Gemtesa 75 mg tablet 75 mg PO HS Date of admission: 11/06/22 18:03 Primary Care Provider: CarleyElena Admitting Provider: Parvez Arias Attending physician on admission: Parvez Arias Condition: Serious
== END 2022-11-09 13:26 | disposition home or self-care (01) ==
LOC: ANHED 14:36 → ANHIMU 19:57
PROVIDERS: Physician Assistant; Admitting Provider Chiropractor; Emergency Provider Student in an Organized Health Care Education/Training Program; PCP Internal Medicine Geriatric Medicine; Visit Provider Student in an Organized Health Care Education/Training Program
DX: I47.29 Other ventricular tachycardia (principal); R42 Dizziness and giddiness; I11.9 Hypertensive heart disease without heart failure; N32.81 Overactive bladder; I44.0 Atrioventricular block, first degree; I67.2 Cerebral atherosclerosis; R41.9 Unspecified symptoms and signs involving cognitive functions and awareness; I08.1 Rheumatic disorders of both mitral and tricuspid valves; G93.0 Cerebral cysts; R79.1 Abnormal coagulation profile; Z96.21 Cochlear implant status; M19.90 Unspecified osteoarthritis, unspecified site; Z87.828 Personal history of other (healed) physical injury and trauma; Z86.69 Personal history of other diseases of the nervous system and sense organs; Z79.899 Other long term (current) drug therapy
CPT/HCPCS: 36415; 70450; 71046; 78452; 80048; 80053; 81003; 83735; 84443; 84484; 85025; 85027; 85055; 85380; 93005; 93017; 93306; 93970; 99285; A9270; A9502; G0378